=== PATIENT | female | born 1990 | race Caucasian/White ===

== ENCOUNTER 2019-03-23 00:18 | Inpatient (IN) | payer MEDICAID, OTHER ==
[~2019-03-23] VITALS: Ht 170.2 cm; Wt 135.6 kg
[2019-03-23] MEDS ORDERED: MORPHINE SULFATE 4 MG/ML CPJ (NOT FOR IM USE) IV ONE (02:15)
[2019-03-23] MEDS ORDERED: ONDANSETRON HCL 4MG/2ML INJ IV ONE (02:30)
[2019-03-23 02:35] LABS: BASOPHILS % 0.8 % (0.0-2.0); EOSINOPHILS % 1.7 % (0.0-5.0); HEMATOCRIT. 43.5 % (36.0-48.0); HEMOGLOBIN. 14.6 g/dL (12.0-16.0); LYMPHOCYTES % 16.6 % (20.0-50.0); MEAN CORPUSCULAR HEMOGLOBIN 29.4 pg (28.0-32.0); MEAN CORPUSCULAR VOLUME 87.4 fL (81.0-99.0); MEAN PLATELET VOLUME 10.5 fl (7.4-10.4); MONOCYTES % 4.5 % (2.0-8.0); NEUTROPHILS % 76.4 % (40.0-76.0); PLATELET 229 x1000/uL (130-400); RED BLOOD CELL COUNT 4.98 mill/uL (4.2-5.4); RED CELL DISTRIBUTION WIDTH 13.1 % (11.6-14.6)
[2019-03-23 02:37] LABS: CHLORIDE 107 mEq/L (98-107)
[2019-03-23 03:09] LABS: B-HCG QUANTITATIVE 1645 mIU/mL (<3)
[2019-03-23 03:32] LABS: CLARITY URINE CLEAR (CLEAR); COLOR URINE YELLOW (YELLOW); KETONES URINE TRACE (NEGATIVE); LEUKOCYTE ESTERASE URINE NEGATIVE (NEGATIVE); NITRITE URINE NEGATIVE (NEGATIVE); OCCULT BLOOD URINE NEGATIVE (NEGATIVE); PH URINE 6.5 (4.5-8.0); PROTEIN URINE NEGATIVE (NEGATIVE); SPECIFIC GRAVITY URINE 1.022 (1.005-1.030); UROBILINOGEN URINE 0.2 E.U./dL (0.2-1.0)
[2019-03-23] MEDS ORDERED: SODIUM CHLORIDE 0.9% 100 ML IV ONE (04:00)
[2019-03-23 04:25] LABS: PARTIAL THROMBOPLASTIN TIME 29.6 sec (23.4-31.0); PROTHROMBIN TIME 10.3 sec (9.6-11.0)
[2019-03-23] MEDS ORDERED: FENTANYL CITRATE/PF 50MCG/ML 2ML VIAL ONE (04:34)
[2019-03-23] MEDS ORDERED: PROPOFOL 200MG/20ML VIAL IV ONE (04:35)
[2019-03-23] MEDS ORDERED: ROCURONIUM BROMIDE 10MG/ML VIAL 5ML IV ONE (04:35)
[2019-03-23] MEDS ORDERED: MIDAZOLAM HCL 2 MG/2 ML VIAL ONE (04:35)
[2019-03-23] MEDS ORDERED: LIDOCAINE HCL/PF 1% 10 MG/ML 5ML VIAL ONE (04:35)
[2019-03-23] MEDS ORDERED: DEXAMETHASONE 4MG/ML 1ML VIAL ONE (05:42)
[2019-03-23] MEDS ORDERED: ONDANSETRON HCL 4MG/2ML INJ ONE (05:42)
[2019-03-23] MEDS ORDERED: METOCLOPRAMIDE HCL 10MG/2ML VIAL ONE (05:42)
[2019-03-23] MEDS ORDERED: CEFAZOLIN SODIUM 1000MG/VIAL ONE (05:52)
[2019-03-23] MEDS ORDERED: NEOSTIGMINE METHYLSULFATE 1MG/ML 10 ML VIAL ONE (06:27)
[2019-03-23] MEDS ORDERED: GLYCOPYRROLATE 0.2 MG/ML 2ML VIAL ONE (06:28)
[2019-03-23] MEDS ORDERED: HYDROMORPHONE HCL/PF 2MG/ML (OR) ONE (07:27)
[2019-03-23 08:00] VITALS: BP 132/70
[2019-03-23] MEDS ORDERED: HYDROMORPHONE HCL/PF 2MG/ML CPJ IV ONE (08:30)
[2019-03-23 09:01] VITALS: BP 132/70
[2019-03-23] MEDS ORDERED: DEXT 5%/LACTATED RINGERS 1,000 ML IV SCH (10:15)
[2019-03-23 12:00] VITALS: BP 109/53
[2019-03-23] MEDS: MORPHINE SULFATE 4 MG/ML CPJ (NOT FOR IM USE) IV PRN (12:43)
[2019-03-23] MEDS: DOCUSATE SODIUM 100MG CAPSULE PO SCH ×2 (12:47→17:29)
[2019-03-23 16:00] VITALS: BP 105/56
[2019-03-23 20:00] VITALS: BP 104/56
[2019-03-23] MEDS: LACTATED RINGERS 1,000 ML IV SCH (22:00)
[2019-03-24] VITALS: BP 95/44
[2019-03-24 04:00] VITALS: BP 108/54
[2019-03-24] MEDS: LACTATED RINGERS 1,000 ML IV SCH ×3 (04:25→18:56)
[2019-03-24 08:00] VITALS: BP 99/46
[2019-03-24] MEDS: DOCUSATE SODIUM 100MG CAPSULE PO SCH ×3 (10:15→17:00)
[2019-03-24 12:00] VITALS: BP 110/62
[2019-03-24] MEDS: MORPHINE SULFATE 4 MG/ML CPJ (NOT FOR IM USE) IV PRN (13:45)
[2019-03-24 16:00] VITALS: BP 129/69
[2019-03-24 20:00] VITALS: BP 116/56
[2019-03-25] VITALS: BP 104/61
[2019-03-25 00:58] LABS: HEMATOCRIT 37.4 % (36.0-48.0); HEMOGLOBIN 12.7 g/dL (12.0-16.0); MEAN CORPUSCULAR HEMOGLOBIN 29.7 pg (28.0-32.0); MEAN CORPUSCULAR VOLUME 87.4 fL (81.0-99.0); PLATELET 191 x1000/uL (130-400); RED BLOOD CELL COUNT 4.27 mill/uL (4.2-5.4); RED CELL DISTRIBUTION WIDTH 13.5 % (11.6-14.6)
[2019-03-25 01:08] LABS: CHLORIDE 106 mEq/L (98-107)
[2019-03-25 01:18] LABS: B-HCG QUANTITATIVE 186 mIU/mL (<3)
[2019-03-25 04:00] VITALS: BP 113/70
[2019-03-25] MEDS ORDERED: POTASSIUM CHLORIDE 20MEQ TABLET SR PO NR (07:30)
[2019-03-25 08:00] VITALS: BP 110/59
[2019-03-25] MEDS: DOCUSATE SODIUM 100MG CAPSULE PO SCH (08:01)
[2019-03-25 09:30] VITALS: BP 110/59
== END 2019-03-25 11:36 | disposition home or self-care (01) | DRG 545 ==
LOC: ER 00:18 → 6EST 05:12 → ENRESERV 06:10
PROVIDERS: ADMIT Obstetrics & Gynecology; ATTEND Obstetrics & Gynecology
PROC: 0UB60ZZ Excision of Left Fallopian Tube, Open Approach (ICD-10-PCS; principal; 2019-03-23)
PROC: 10T20ZZ Resection of Products of Conception, Ectopic, Open Approach (ICD-10-PCS; 2019-03-23)
DX: O00.102 Left tubal pregnancy without intrauterine pregnancy (principal); K66.1 Hemoperitoneum; E87.6 Hypokalemia; O99.281 Endocrine, nutritional and metabolic diseases complicating pregnancy, first trimester; O26.891 Other specified pregnancy related conditions, first trimester; Z3A.01 Less than 8 weeks gestation of pregnancy; Z83.3 Family history of diabetes mellitus; Z88.8 Allergy status to other drugs, medicaments and biological substances; E66.01 Morbid (severe) obesity due to excess calories
CPT/HCPCS: 36415; 71045; 76801; 80048; 80053; 81003; 81025; 84702; 85025; 85027; 86850; 86900; 88305; 93005; 96361; 96374; 96375; 99285; J0690; J1100; J1170; J2250; J2270; J2405; J2704; J2710; J2765; J3010; J3490; J7120; J7121

== ENCOUNTER 2020-10-29 17:08 | Emergency (ER) | payer MEDICAID ==
[~2020-10-29] VITALS: Ht 170.2 cm; Wt 93.0 kg
[2020-10-29 17:14] VITALS: BP 158/82
== END 2020-10-30 01:31 | disposition home or self-care (01) ==
LOC: ER 17:08
DX: O26.891 Other specified pregnancy related conditions, first trimester (principal); R10.9 Unspecified abdominal pain; Z3A.01 Less than 8 weeks gestation of pregnancy; Z88.6 Allergy status to analgesic agent; Z98.890 Other specified postprocedural states
CPT/HCPCS: 36415; 76801; 76817; 84702; 99284; Z7610

== ENCOUNTER 2022-08-15 01:42 | Inpatient (IN) | payer MEDICAID, OTHER ==
[~2022-08-15] VITALS: Ht 170.2 cm; Wt 142.9 kg
[2022-08-15] MEDS ORDERED: NALOXONE HCL 0.4 MG/ML 1ML VIAL IM PRN (02:45)
[2022-08-15] MEDS ORDERED: METHYLERGONOVINE MALEATE 0.2 MG/ML IM PRN (02:45)
[2022-08-15] MEDS ORDERED: LIDOCAINE HCL 1% 20ML VIAL (Pyxis) INJ INFIL SCH (02:45)
[2022-08-15] MEDS ORDERED: PENICILLIN G POTASSIUM 5 MMU in DEXT 5% WATER 100 ML IV SCH (02:45)
[2022-08-15] MEDS: LACTATED RINGERS 1,000 ML IV SCH ×4 (03:27→17:40)
[2022-08-15 03:55] LABS: CLARITY URINE CLEAR (CLEAR); COLOR URINE YELLOW (YELLOW); KETONES URINE NEGATIVE (NEGATIVE); LEUKOCYTE ESTERASE URINE TRACE (NEGATIVE); NITRITE URINE NEGATIVE (NEGATIVE); OCCULT BLOOD URINE NEGATIVE (NEGATIVE); PROTEIN URINE NEGATIVE (NEGATIVE); SPECIFIC GRAVITY URINE 1.005 (1.005-1.030); UROBILINOGEN URINE 0.2 E.U./dL (0.2-1.0)
[2022-08-15 04:03] LABS: BASOPHILS % 0.8 % (0.0-2.0); EOSINOPHILS % 2.3 % (0.0-5.0); HEMATOCRIT. 39.8 % (36.0-48.0); HEMOGLOBIN. 13.8 g/dL (12.0-16.0); LYMPHOCYTES % 21.9 % (20.0-50.0); MEAN CORPUSCULAR VOLUME 83.9 fL (81.0-99.0); MEAN PLATELET VOLUME 11.6 fl (7.4-10.4); PLATELET 204 x1000/uL (130-400); RED BLOOD CELL COUNT 4.75 mill/uL (4.2-5.4)
[2022-08-15 04:22] LABS: CHLORIDE 108 mEq/L (98-107)
[2022-08-15] MEDS ORDERED: PREN-176 PO (04:22)
[2022-08-15 04:37] LABS: *AMPHETAMINES SCREEN URINE NEGATIVE (NEGATIVE); *BARBITURATES SCREEN URINE NEGATIVE (NEGATIVE); *BENZODIAZEPINES SCREEN URINE NEGATIVE (NEGATIVE); *COCAINE SCREEN URINE NEGATIVE (NEGATIVE); CANNABINOID URINE SCREEN NEGATIVE (NEGATIVE); METHADONE URINE SCREEN NEGATIVE (NEGATIVE); OPIATES URINE SCREEN NEGATIVE (NEGATIVE); PHENCYCLIDINE URINE SCREEN NEGATIVE (NEGATIVE)
[2022-08-15 05:40] LABS: HEPATITIS B SURFACE ANTIGEN NEGATIVE
[2022-08-15 07:29] LABS: PARTIAL THROMBOPLASTIN TIME 27.8 sec (23.4-31.0); PROTHROMBIN TIME 10.3 sec (9.6-11.0)
[2022-08-15] MEDS: PENICILLIN G POTASSIUM 2.5 MMU in DEXTROSE 5% WATER 50 ML IV SCH ×3 (08:16→18:04)
[2022-08-15] MEDS: OXYTOCIN 30 UNITS/500ML NS PMX 500 ML IV SCH ×2 (09:45→23:04)
[2022-08-15] MEDS ORDERED: ROPIVACAINE HCL/PF EPIDURAL 200 ML EPI ONE (18:08)
[2022-08-15 19:50] LABS: T4 FREE 0.7 ng/dL (0.76-1.46)
[2022-08-15] MEDS ORDERED: BISACODYL 10MG SUPP PR PRN (23:45)
[2022-08-15] MEDS ORDERED: ACETAMINOPHEN WITH CODEINE 300/30MG TABLET PO PRN (23:45)
[2022-08-15] MEDS ORDERED: BENZOCAINE/LANOLIN/ALOE VERA SPRAY TOP PRN (23:45)
[2022-08-15] MEDS ORDERED: DIPHENHYDRAMINE 25MG CAPSULE PO PRN (23:45)
[2022-08-15] MEDS ORDERED: GLYCERIN/WITCH HAZEL LEAF MEDICATED PAD TOP PRN (23:45)
[2022-08-15] MEDS ORDERED: OXYTOCIN 30 UNITS/500ML NS PMX 500 ML IV SCH (23:45)
[2022-08-15] MEDS ORDERED: IBUPROFEN 400MG TABLET PO PRN (23:45)
[2022-08-15] MEDS ORDERED: HEMORRHOIDAL SUPP PR PRN (23:45)
[2022-08-15] MEDS ORDERED: RHO(D) IMMUNE GLOBULIN 300 MCG/SYR IM PRN (23:45)
[2022-08-16 02:30] VITALS: BP 132/75
[2022-08-16] MEDS: IBUPROFEN 800MG TABLET PO PRN ×3 (03:18→21:41)
[2022-08-16 04:15] VITALS: BP 125/75
[2022-08-16 06:38] LABS: BASOPHILS % 0.3 % (0.0-2.0); EOSINOPHILS % 0.1 % (0.0-5.0); HEMATOCRIT. 33.8 % (36.0-48.0); HEMOGLOBIN. 11.4 g/dL (12.0-16.0); LYMPHOCYTES % 12.1 % (20.0-50.0); MEAN CORPUSCULAR HEMOGLOBIN 28.5 pg (28.0-32.0); MEAN CORPUSCULAR VOLUME 84.6 fL (81.0-99.0); MEAN PLATELET VOLUME 11.1 fl (7.4-10.4); MONOCYTES % 5.5 % (2.0-8.0); PLATELET 183 x1000/uL (130-400); RED BLOOD CELL COUNT 3.99 mill/uL (4.2-5.4); RED CELL DISTRIBUTION WIDTH 14.8 % (11.6-14.6)
[2022-08-16 08:30] VITALS: BP 114/77
[2022-08-16] MEDS: PRENATAL VIT/FE FUMARATE/FA TABLET PO SCH (09:04)
[2022-08-16] MEDS: FERROUS SULFATE 325MG TABLET PO SCH (09:04)
[2022-08-16 16:30] VITALS: BP 121/57
[2022-08-16 19:30] VITALS: BP 115/72
[2022-08-17 04:00] VITALS: BP 113/58
[2022-08-17 06:18] LABS: BASOPHILS % 0.4 % (0.0-2.0); EOSINOPHILS % 1.7 % (0.0-5.0); HEMATOCRIT. 31.6 % (36.0-48.0); HEMOGLOBIN. 10.7 g/dL (12.0-16.0); LYMPHOCYTES % 27.1 % (20.0-50.0); MEAN CORPUSCULAR HEMOGLOBIN 29.1 pg (28.0-32.0); MEAN CORPUSCULAR VOLUME 85.8 fL (81.0-99.0); MEAN PLATELET VOLUME 10.9 fl (7.4-10.4); MONOCYTES % 5.5 % (2.0-8.0); NEUTROPHILS % 65.3 % (40.0-76.0); PLATELET 187 x1000/uL (130-400); RED BLOOD CELL COUNT 3.68 mill/uL (4.2-5.4); RED CELL DISTRIBUTION WIDTH 15.1 % (11.6-14.6)
[2022-08-17 08:00] VITALS: BP 113/58
[2022-08-17] MEDS: PRENATAL VIT/FE FUMARATE/FA TABLET PO SCH (09:09)
[2022-08-17] MEDS: FERROUS SULFATE 325MG TABLET PO SCH (09:09)
== END 2022-08-17 14:50 | disposition home or self-care (01) | DRG 560 ==
LOC: OBSVTOIN 01:42 → 8 EST LDRP 01:42 → 8EST 08-16 06:54
PROVIDERS: ADMIT Obstetrics & Gynecology; ATTEND Obstetrics & Gynecology
PROC: 0KQM0ZZ Repair Perineum Muscle, Open Approach (ICD-10-PCS; principal; 2022-08-15)
PROC: 10E0XZZ Delivery of Products of Conception, External Approach (ICD-10-PCS; 2022-08-15)
DX: O99.214 Obesity complicating childbirth (principal); Z37.0 Single live birth; O24.420 Gestational diabetes mellitus in childbirth, diet controlled; O66.0 Obstructed labor due to shoulder dystocia; O70.1 Second degree perineal laceration during delivery; Z20.822 Contact with and (suspected) exposure to COVID-19; Z3A.39 39 weeks gestation of pregnancy; Z83.3 Family history of diabetes mellitus; Z88.6 Allergy status to analgesic agent
CPT/HCPCS: 36415; 76805; 76818; 80053; 80305; 81003; 84439; 84443; 84481; 85025; 86592; 86703; 86762; 86850; 86900; 87340; 87426; 99281; J2540; J2795; J3490; J7060; J7120; J2590